=== PATIENT | female | born 1990 | race Caucasian/White ===

== ENCOUNTER 2021-11-15 19:07 | Emergency (ER) | payer OTHER ==
[~2021-11-15] VITALS: Ht 157.5 cm; Wt 74.0 kg
[2021-11-15 20:00] LABS: URINE BILIRUBIN - DIPSTICK NEGATIVE (NEGATIVE); URINE BLOOD DIPSTICK NEGATIVE (NEGATIVE); URINE COLOR YELLOW; URINE GLUCOSE - DIPSTICK NEGATIVE (NEGATIVE); URINE KETONE NEGATIVE (NEGATIVE); URINE LEUK ESTERASE NEGATIVE (NEGATIVE); URINE PROTEIN - DIPSTICK NEGATIVE (NEG-TRACE); URINE SPECIFIC GRAVITY >=1.030; URINE UROBILINOGEN - DIPSTICK 0.2 E.U./dL (0.2)
[2021-11-15 20:03] LABS: HCG SERUM/URINE (NEG/POS) NEGATIVE (NEGATIVE); URINE NITRITE - DIPSTICK NEGATIVE (Negative)
[2021-11-15] MEDS ORDERED: KEFLEX500 MG PO (20:46)
[2021-11-15] MEDS ORDERED: ROBITUSSIN AC10 ML PO (20:46)
[2021-11-15 20:55] VITALS: BP 133/82
== END 2021-11-15 21:00 | disposition home or self-care (01) ==
LOC: ED 19:07
PROVIDERS: Emergency Medicine
DX: J06.9 Acute upper respiratory infection, unspecified (principal); Z20.822 Contact with and (suspected) exposure to COVID-19

== ENCOUNTER 2022-01-06 18:02 | Emergency (ER) | payer OTHER, MEDICAID ==
[~2022-01-06] VITALS: Ht 157.5 cm; Wt 90.0 kg
[~2022-01-06 18:02] MED LIST: KEFLEX500 MG PO; ROBITUSSIN AC10 ML PO
[2022-01-06 19:48] LABS: HEMATOCRIT 39.6 % (37.0-47.0); HEMOGLOBIN 13.5 g/dl (12.0-16.0); IMMATURE GRANULOCYTES 0.1 % (0.0-5.0); MEAN CELL VOLUME 86.7 fL CALC (80.0-100.0); MEAN CORPUSCULAR HGB 29.5 pG CALC (26.0-32.0); MEAN CORPUSCULAR HGB CONC 34.1 g/dL CAL (32.0-36.0); NEUT# 6.61 thou/uL (2.00-7.15); RED BLOOD COUNT 4.57 mill/uL (4.20-5.60); RED CELL DISTRI WIDTH 12.9 % (11.5-15.5)
[2022-01-06 19:58] LABS: URINE BILIRUBIN - DIPSTICK NEGATIVE (NEGATIVE); URINE BLOOD DIPSTICK SMALL (NEGATIVE); URINE CLARITY CLEAR; URINE COLOR YELLOW; URINE GLUCOSE - DIPSTICK NEGATIVE (NEGATIVE); URINE KETONE NEGATIVE (NEGATIVE); URINE LEUK ESTERASE NEGATIVE (Negative); URINE NITRITE - DIPSTICK NEGATIVE (Negative); URINE PROTEIN - DIPSTICK NEGATIVE (NEG-TRACE); URINE SPECIFIC GRAVITY 1.025; URINE UROBILINOGEN - DIPSTICK 0.2 E.U./dL (0.2)
[2022-01-06 20:09] LABS: URINE SQUAMOUS EPITHELIAL CELL FEW EPI/hpf (0-FEW)
[2022-01-06 20:24] LABS: ALBUMIN 4.1 g/dL (3.2-5.0); ALKALINE PHOSPHATASE 51 u/l (38-126); ANION GAP 11 (6-22 (CALC)); BILIRUBIN, TOTAL 0.1 mg/dL (0.0-1.4); BUN 7 mg/dL (7-17); BUN/CREATININE RATIO 12 (12-20 (CALC)); CARBON DIOXIDE 24 mmol/l (22-30); CHLORIDE 104 mmol/l (95-108); CREATININE 0.6 mg/dL (0.5-1.0); GFR > 60 ML/MIN (>=60 (CALC)); GFR FOR AFR.AMER. > 60 ML/MIN (>=60 (CALC)); POTASSIUM 3.6 mmol/l (3.5-5.1); SGOT/AST 23 u/l (14-36); SODIUM 136 mmol/l (137-146); TOTAL PROTEIN 7.3 g/dL (6.3-8.2)
[2022-01-06 21:00] VITALS: BP 110/68
[2022-01-06 21:05] LABS: BETA-HCG, QUANT(RESULT NUMBER) 230480 mIU/mL
== END 2022-01-06 21:15 | disposition home or self-care (01) | DRG 833 ==
LOC: ED 18:02
PROVIDERS: Family Medicine
DX: O9A.211 Injury, poisoning and certain other consequences of external causes complicating pregnancy, first trimester (principal); S30.1XXA Contusion of abdominal wall, initial encounter; S39.012A Strain of muscle, fascia and tendon of lower back, initial encounter; V49.40XA Driver injured in collision with unspecified motor vehicles in traffic accident, initial encounter; Z3A.00 Weeks of gestation of pregnancy not specified

== ENCOUNTER 2022-01-29 20:17 | Emergency (ER) | payer MEDICAID ==
[~2022-01-29] VITALS: Ht 157.5 cm; Wt 72.0 kg
[2022-01-29 20:35] VITALS: BP 119/80
[2022-01-29 20:43] LABS: HEMATOCRIT 36.6 % (37.0-47.0); HEMOGLOBIN 12.7 g/dl (12.0-16.0); IMMATURE GRANULOCYTES 0.2 % (0.0-5.0); MEAN CELL VOLUME 85.5 fL CALC (80.0-100.0); MEAN CORPUSCULAR HGB 29.7 pG CALC (26.0-32.0); MEAN CORPUSCULAR HGB CONC 34.7 g/dL CAL (32.0-36.0); NEUT# 5.14 thou/uL (2.00-7.15); RED BLOOD COUNT 4.28 mill/uL (4.20-5.60)
[2022-01-29] MEDS ORDERED: PRENATA3 PO (20:59)
[2022-01-29 21:05] LABS: ALBUMIN 3.6 g/dL (3.2-5.0); ALKALINE PHOSPHATASE 46 u/l (38-126); ANION GAP 10 (6-22 (CALC)); BUN 6 mg/dL (7-17); BUN/CREATININE RATIO 12 (12-20 (CALC)); CARBON DIOXIDE 24 mmol/l (22-30); CHLORIDE 104 mmol/l (95-108); CREATININE 0.5 mg/dL (0.5-1.0); GFR > 60 ML/MIN (>=60 (CALC)); GFR FOR AFR.AMER. > 60 ML/MIN (>=60 (CALC)); POTASSIUM 3.6 mmol/l (3.5-5.1); SGOT/AST 19 u/l (14-36); SODIUM 134 mmol/l (137-146); TOTAL PROTEIN 6.6 g/dL (6.3-8.2)
[2022-01-29 21:06] LABS: BILIRUBIN, TOTAL 0.2 mg/dL (0.0-1.4)
[2022-01-29 21:47] LABS: BETA-HCG, QUANT(RESULT NUMBER) 94160 mIU/mL
[2022-01-29 22:16] VITALS: BP 112/61
[2022-01-29 22:30] VITALS: BP 114/74
[2022-01-29 22:45] VITALS: BP 117/69
[2022-01-29 23:00] VITALS: BP 116/73
[2022-01-29 23:28] LABS: URINE BILIRUBIN - DIPSTICK NEGATIVE (NEGATIVE); URINE BLOOD DIPSTICK LARGE (NEGATIVE); URINE COLOR YELLOW; URINE GLUCOSE - DIPSTICK NEGATIVE (NEGATIVE); URINE KETONE NEGATIVE (NEGATIVE); URINE PH 6.5 (4.5-8.0); URINE PROTEIN - DIPSTICK NEGATIVE (NEG-TRACE); URINE SPECIFIC GRAVITY 1.015; URINE UROBILINOGEN - DIPSTICK 0.2 E.U./dL (0.2)
[2022-01-29 23:30] VITALS: BP 116/73
[2022-01-29 23:32] LABS: URINE NITRITE - DIPSTICK NEGATIVE (Negative)
[2022-01-29 23:33] LABS: URINE LEUK ESTERASE NEGATIVE (NEGATIVE)
[2022-01-29 23:35] LABS: URINE EPITHELIAL CELLS FEW EPI/hpf (0-FEW)
[2022-01-29 23:36] LABS: URINE BACTERIA FEW hpf
== END 2022-01-29 23:45 | disposition home or self-care (01) ==
LOC: ED 20:17
PROVIDERS: Emergency Medicine
DX: O20.0 Threatened abortion (principal); D25.9 Leiomyoma of uterus, unspecified; O34.11 Maternal care for benign tumor of corpus uteri, first trimester; Z3A.12 12 weeks gestation of pregnancy

== ENCOUNTER 2022-02-06 18:36 | Emergency (ER) | payer MEDICAID ==
[~2022-02-06 18:36] MED LIST changes: +PRENATA3 PO
== END 2022-02-06 21:30 | disposition left against medical advice (07) | DRG 951 ==
LOC: ED 18:36 → LWOBS 21:14
DX: Z53.21 Procedure and treatment not carried out due to patient leaving prior to being seen by health care provider (principal)

== ENCOUNTER 2022-02-07 17:32 | Emergency (ER) | payer MEDICAID ==
[~2022-02-07] VITALS: Ht 157.5 cm; Wt 64.0 kg
[2022-02-07] VITALS (7 sets, daily range): BP systolic 98–119; BP diastolic 70–79
[2022-02-07 18:32] LABS: URINE BILIRUBIN - DIPSTICK NEGATIVE (NEGATIVE); URINE BLOOD DIPSTICK MODERATE (NEGATIVE); URINE COLOR YELLOW; URINE GLUCOSE - DIPSTICK NEGATIVE (NEGATIVE); URINE KETONE NEGATIVE (NEGATIVE); URINE LEUK ESTERASE NEGATIVE (NEGATIVE); URINE PROTEIN - DIPSTICK NEGATIVE (NEG-TRACE); URINE UROBILINOGEN - DIPSTICK 0.2 E.U./dL (0.2)
[2022-02-07 18:35] LABS: URINE NITRITE - DIPSTICK NEGATIVE (Negative)
[2022-02-07 18:41] LABS: URINE SQUAMOUS EPITHELIAL CELL FEW EPI/hpf (0-FEW); URINE WBC 0-2 WBC/hpf (0-5)
[2022-02-07 18:49] LABS: HEMATOCRIT 35.5 % (37.0-47.0); HEMOGLOBIN 12.2 g/dl (12.0-16.0); IMMATURE GRANULOCYTES 0.4 % (0.0-5.0); MEAN CELL VOLUME 86.6 fL CALC (80.0-100.0); MEAN CORPUSCULAR HGB 29.8 pG CALC (26.0-32.0); MEAN CORPUSCULAR HGB CONC 34.4 g/dL CAL (32.0-36.0); NEUT# 5.71 thou/uL (2.00-7.15); RED BLOOD COUNT 4.1 mill/uL (4.20-5.60); RED CELL DISTRI WIDTH 13.4 % (11.5-15.5)
[2022-02-07 19:08] LABS: ALBUMIN 3.6 g/dL (3.2-5.0); ALKALINE PHOSPHATASE 46 u/l (38-126); ANION GAP 10 (6-22 (CALC)); BILIRUBIN, TOTAL 0.1 mg/dL (0.0-1.4); BUN 6 mg/dL (7-17); BUN/CREATININE RATIO 12 (12-20 (CALC)); CARBON DIOXIDE 23 mmol/l (22-30); CHLORIDE 105 mmol/l (95-108); CREATININE 0.5 mg/dL (0.5-1.0); GFR > 60 ML/MIN (>=60 (CALC)); GFR FOR AFR.AMER. > 60 ML/MIN (>=60 (CALC)); POTASSIUM 3.7 mmol/l (3.5-5.1); SGOT/AST 19 u/l (14-36); SODIUM 135 mmol/l (137-146); TOTAL PROTEIN 6.7 g/dL (6.3-8.2)
[2022-02-07 19:54] LABS: BETA-HCG, QUANT(RESULT NUMBER) 69978 mIU/mL
== END 2022-02-07 21:42 | disposition home or self-care (01) ==
LOC: ED 17:32
PROVIDERS: Nurse Practitioner
DX: O20.0 Threatened abortion (principal); O34.12 Maternal care for benign tumor of corpus uteri, second trimester; D25.9 Leiomyoma of uterus, unspecified; Z3A.14 14 weeks gestation of pregnancy

== ENCOUNTER 2022-04-21 20:33 | Emergency (ER) | payer OTHER, MEDICAID ==
[~2022-04-21] VITALS: Ht 157.5 cm; Wt 72.7 kg
[2022-04-21 20:49] VITALS: BP 121/79
[2022-04-21 21:00] VITALS: BP 118/78
[2022-04-21 21:15] VITALS: BP 108/82
[2022-04-21] MEDS ORDERED: DIPHENHYDRAM50 M2 PO (21:24)
[2022-04-21 21:30] VITALS: BP 124/81
[2022-04-21 21:47] VITALS: BP 124/81
== END 2022-04-21 21:47 | disposition home or self-care (01) | DRG 833 ==
LOC: ED 20:33
DX: O99.713 Diseases of the skin and subcutaneous tissue complicating pregnancy, third trimester (principal); R21 Rash and other nonspecific skin eruption

== ENCOUNTER 2022-07-11 13:50 | Emergency (ER) | payer OTHER, MEDICAID ==
[~2022-07-11] VITALS: Ht 157.5 cm; Wt 75.0 kg
[~2022-07-11 13:50] MED LIST changes: +DIPHENHYDRAM50 M2 PO
[2022-07-11 14:08] VITALS: BP 108/71
[2022-07-11 14:53] LABS: HEMATOCRIT 32.7 % (37.0-47.0); HEMOGLOBIN 11.3 g/dl (12.0-16.0); IMMATURE GRANULOCYTES 0.6 % (0.0-5.0); MEAN CELL VOLUME 90.3 fL CALC (80.0-100.0); MEAN CORPUSCULAR HGB 31.2 pG CALC (26.0-32.0); MEAN CORPUSCULAR HGB CONC 34.6 g/dL CAL (32.0-36.0); NEUT# 6.61 thou/uL (2.00-7.15); RED BLOOD COUNT 3.62 mill/uL (4.20-5.60); RED CELL DISTRI WIDTH 13.7 % (11.5-15.5)
[2022-07-11 15:11] LABS: BUN 5 mg/dL (7-17); BUN/CREATININE RATIO 10 (12-20 (CALC)); CARBON DIOXIDE 23 mmol/l (22-30); CHLORIDE 107 mmol/l (95-108); CREATININE 0.5 mg/dL (0.5-1.0); GFR FOR AFR.AMER. > 60 ML/MIN (>=60 (CALC)); GFR OTHER RACES > 60 ML/MIN (>=60 (CALC)); SGOT/AST 18 u/l (14-36); SODIUM 136 mmol/l (137-146); TOTAL PROTEIN 5.7 g/dL (6.3-8.2)
[2022-07-11 15:12] LABS: ANION GAP 10 (6-22 (CALC)); POTASSIUM 3.9 mmol/l (3.5-5.1)
[2022-07-11 15:13] LABS: ALKALINE PHOSPHATASE 87 u/l (38-126); BILIRUBIN, TOTAL 0.2 mg/dL (0.0-1.4)
[2022-07-11 16:21] VITALS: BP 111/75
[2022-07-11 16:30] VITALS: BP 109/77
== END 2022-07-11 16:54 | DRG 833 ==
LOC: ED 13:50
PROVIDERS: Family Medicine
DX: O20.0 Threatened abortion (principal); Z3A.36 36 weeks gestation of pregnancy

== ENCOUNTER 2022-11-10 20:08 | Emergency (ER) | payer OTHER, MEDICAID ==
[~2022-11-10] VITALS: Ht 157.5 cm; Wt 72.7 kg
[2022-11-10 20:27] VITALS: BP 129/88
[2022-11-10 20:30] VITALS: BP 118/86
[2022-11-10 21:00] VITALS: BP 117/83
[2022-11-10 21:04] LABS: URINE BILIRUBIN - DIPSTICK NEGATIVE (NEGATIVE); URINE BLOOD DIPSTICK NEGATIVE (NEGATIVE); URINE COLOR YELLOW; URINE GLUCOSE - DIPSTICK NEGATIVE (NEGATIVE); URINE KETONE TRACE mg/dL (NEGATIVE); URINE LEUK ESTERASE NEGATIVE (NEGATIVE); URINE NITRITE - DIPSTICK NEGATIVE (Negative); URINE PH 5.5 (4.5-8.0); URINE PROTEIN - DIPSTICK NEGATIVE (NEG-TRACE); URINE SPECIFIC GRAVITY >=1.030; URINE UROBILINOGEN - DIPSTICK 0.2 E.U./dL (0.2)
[2022-11-10 21:04] LABS: BASO% 0.4 % (0-3); EOS% 4.1 % (0-8); HEMATOCRIT 34.4 % (37.0-47.0); HEMOGLOBIN 12.2 g/dl (12.0-16.0); IMMATURE GRANULOCYTES 0.3 % (0.0-5.0); LYMPH% 35.2 % (15-41); MEAN CELL VOLUME 88.7 fL CALC (80.0-100.0); MEAN CORPUSCULAR HGB 31.4 pG CALC (26.0-32.0); MEAN CORPUSCULAR HGB CONC 35.5 g/dL CAL (32.0-36.0); MONO% 7.2 % (2-13); NEUT# 3.71 thou/uL (2.00-7.15); NEUT% 52.8 % (42-76); RED BLOOD COUNT 3.88 mill/uL (4.20-5.60); RED CELL DISTRI WIDTH 12.4 % (11.5-15.5)
[2022-11-10 21:15] VITALS: BP 116/75
[2022-11-10 21:16] LABS: ALBUMIN 4.3 g/dL (3.2-5.0); ALKALINE PHOSPHATASE 54 u/l (38-126); ANION GAP 14 (6-22 (CALC)); BILIRUBIN, TOTAL 0.1 mg/dL (0.0-1.4); BUN 11 mg/dL (7-17); BUN/CREATININE RATIO 13 (12-20 (CALC)); CARBON DIOXIDE 24 mmol/l (22-30); CHLORIDE 106 mmol/l (95-108); CREATININE 0.9 mg/dL (0.5-1.0); GFR FOR AFR.AMER. > 60 ML/MIN (>=60 (CALC)); GFR OTHER RACES > 60 ML/MIN (>=60 (CALC)); POTASSIUM 3.6 mmol/l (3.5-5.1); SGOT/AST 33 u/l (14-36); SODIUM 141 mmol/l (137-146); TOTAL PROTEIN 7.2 g/dL (6.3-8.2)
[2022-11-10 22:20] VITALS: BP 116/75
== END 2022-11-10 22:23 | disposition home or self-care (01) | DRG 563 ==
LOC: ED 20:08
PROVIDERS: Family Medicine
DX: S39.011A Strain of muscle, fascia and tendon of abdomen, initial encounter (principal); X50.0XXA Overexertion from strenuous movement or load, initial encounter

== ENCOUNTER 2023-11-01 01:44 | Emergency (ER) | payer OTHER ==
[~2023-11-01] VITALS: Ht 157.5 cm; Wt 72.5 kg
[2023-11-01 01:51] VITALS: BP 125/86
[2023-11-01 02:00] VITALS: BP 121/86
[2023-11-01 02:15] VITALS: BP 122/79
[2023-11-01 02:30] VITALS: BP 124/87
[2023-11-01 02:53] LABS: BASO% 0.4 % (0-3); EOS% 2.2 % (0-8); HEMATOCRIT 36.7 % (37.0-47.0); HEMOGLOBIN 12.8 g/dl (12.0-16.0); IMMATURE GRANULOCYTES 0.2 % (0.0-5.0); LYMPH% 31.3 % (15-41); MEAN CELL VOLUME 86.6 fL CALC (80.0-100.0); MEAN CORPUSCULAR HGB 30.2 pG CALC (26.0-32.0); MEAN CORPUSCULAR HGB CONC 34.9 g/dL CAL (32.0-36.0); NEUT# 2.93 thou/uL (2.00-7.15); NEUT% 54.9 % (42-76); RED BLOOD COUNT 4.24 mill/uL (4.20-5.60); RED CELL DISTRI WIDTH 12.2 % (11.5-15.5)
[2023-11-01 03:46] LABS: URINE BILIRUBIN - DIPSTICK Negative (NEGATIVE); URINE BLOOD DIPSTICK Negative (NEGATIVE); URINE GLUCOSE - DIPSTICK Negative (NEGATIVE); URINE KETONE Negative (NEGATIVE); URINE LEUK ESTERASE Negative (NEGATIVE); URINE NITRITE - DIPSTICK Negative (Negative); URINE PROTEIN - DIPSTICK Negative (NEG-TRACE); URINE UROBILINOGEN - DIPSTICK 0.2 E.U./dL (0.2)
[2023-11-01 03:55] LABS: URINE COLOR Yellow
[2023-11-01 04:09] LABS: ALBUMIN 4.2 g/dL (3.2-5.0); ALKALINE PHOSPHATASE 53 u/l (38-126); ANION GAP 14 (6-22 (CALC)); BUN 4 mg/dL (7-17); BUN/CREATININE RATIO 7 (12-20 (CALC)); CARBON DIOXIDE 23 mmol/l (22-30); CHLORIDE 105 mmol/l (95-108); CREATININE 0.6 mg/dL (0.5-1.0); GFR FOR AFR.AMER. > 60 ML/MIN (>=60 (CALC)); GFR OTHER RACES > 60 ML/MIN (>=60 (CALC)); POTASSIUM 3.5 mmol/l (3.5-5.1); SGOT/AST 52 u/l (14-36); SODIUM 138 mmol/l (137-146); TOTAL PROTEIN 7.3 g/dL (6.3-8.2)
[2023-11-01 04:10] LABS: BILIRUBIN, TOTAL 0.3 mg/dL (0.02-1.3)
[2023-11-01 04:38] VITALS: BP 118/75
[2023-11-01] MEDS ORDERED: PROVENTIL HFA108 MCG MT (04:38)
[2023-11-01 04:44] VITALS: BP 115/78
== END 2023-11-01 04:53 | disposition home or self-care (01) | DRG 203 ==
LOC: ED 01:44
PROVIDERS: Internal Medicine
DX: J40 Bronchitis, not specified as acute or chronic (principal); R10.9 Unspecified abdominal pain